=== PATIENT | female | born 1975 | race Asian ===

== ENCOUNTER 2020-05-28 15:09 | Emergency (ER) | payer OTHER ==
[~2020-05-28] VITALS: Ht 157.5 cm; Wt 49.9 kg
[2020-05-28 15:30] VITALS: BP 155/95
--- NOTE | 2020-05-28 15:42 | NUR ---
PT AMB TO BED 4.
--- NOTE | 2020-05-28 15:56 | NUR ---
Dr. Lee is evaluating the patient at bedside.
--- NOTE | 2020-05-28 16:00 | NUR ---
C/O DIZZINESS AND NAUSEA STARTING THIS MORNING FOLLOWED BY A WITNESSED SYNCOPAL EPISODE. PER PT, SHE HAS NOT HAS RECENT COUGH/FEVER/SOB ETC. PT REPORTS TAKING HER BP MEDICATION IN THE MORNING PRIOR TO THE SYNCOPAL EPISODE. PT A & O X4, STATES SHE STILL FEELS VERY WEAK. DENIES NAUSEA AT THIS TIME.BED IN LOW POSITION, SIDE RAILS UP X1. PT PLACED ON BEDSIDE MANAGER OF [facility] AT THIS TIME.
[2020-05-28 16:28] LABS: BASOPHILS % (AUTO) 0.5 % (0.0-2.0); EOSINOPHILS % (AUTO) 0.2 % (0.0-4.0); HEMATOCRIT 33.4 % (36-48); HEMOGLOBIN 10.7 g/dL (12.0-16.0); LYMPHOCYTES # (AUTO) 1.3 K/uL (2.5-16.5); LYMPHOCYTES % (AUTO) 16.1 % (20.5-51.1); MEAN CORPUSCULAR HEMOGLOBIN 26 pg (27-31); MEAN CORPUSCULAR HGB CONC 32 g/dL (33-37); MEAN CORPUSCULAR VOLUME 80.5 fL (80-94); MONOCYTES # (AUTO) 0.3 K/uL (0.8-1.0); MONOCYTES % (AUTO) 4.3 % (1.7-9.3); NEUTROPHILS # (AUTO) 6.2 K/uL (1.8-7.7); NEUTROPHILS % (AUTO) 78.9 % (42.2-75.2); PLATELET COUNT (AUTO) 330 K/uL (140-450); RED BLOOD CELL COUNT(AUTO) 4.14 MIL/uL (4.20-5.40); RED CELL DISTRIBUTION WIDTH 16.2 % (11.6-13.7); WHITE BLOOD COUNT (AUTO) 7.9 K/uL (4.8-10.8)
[2020-05-28 16:49] LABS: ANION GAP 14.8 (8-16); CREATININE 0.8 mg/dL (0.6-1.3); THYROID STIMULATING HORMONE 0.91 uIU/mL (0.34-3.74); TOTAL BILIRUBIN 0.4 mg/dL (0.0-1.0)
[2020-05-28 16:55] LABS: POTASSIUM 2.8 mmol/L (3.5-5.1)
[2020-05-28] MEDS ORDERED: KCL 20 MEQ/WATER INJ PREMIX 100 ML IV ONE (17:05)
[2020-05-28] MEDS ORDERED: POTASSIUM CHLORIDE 10 MEQ TABER PO ONE (17:05)
[2020-05-28] MEDS ORDERED: MAG SULF 2000 MG/WATER PREMIX 50 ML IV ONE (17:05)
[2020-05-28] MEDS ORDERED: NACL 0.9% 1,000 ML IV ONE (17:05)
--- NOTE | 2020-05-28 19:36 | NUR ---
RECEIVED REPORT FROM AMADEO ISABEL
[2020-05-28 21:22] VITALS: BP 159/87
--- NOTE | 2020-05-28 21:25 | NUR ---
Patient discharged with v/s stable. Written and verbal after care instructions given and explained. Patient verbalized understanding. Ambulatory with steady gait. All questions addressed prior to discharge. Advised to follow up with PMD.
== END 2020-05-28 21:22 | disposition home or self-care (01) ==
LOC: MED 15:09
DX: E87.6 Hypokalemia (principal); R55 Syncope and collapse; I10 Essential (primary) hypertension
CPT/HCPCS: 36415; 71045; 80053; 81002; 81025; 82948; 84443; 84484; 85025; 93005; 96365; 96366; 96368; 99285; J3475; J3480; J7030; Q0092

== ENCOUNTER 2020-06-12 21:40 | Emergency (ER) | payer OTHER ==
[~2020-06-12] VITALS: Ht 149.9 cm; Wt 50.3 kg
[2020-06-12 21:57] VITALS: BP 175/89
--- NOTE | 2020-06-12 22:05 | NUR ---
PT TAKEN TO BED 5
--- NOTE | 2020-06-12 22:14 | NUR ---
45 Y/O FEMALE BIB FROM HOME. PT IS [place] SPEAKING ONLY. HISTORY IS PROVIDED BY . STATES PT HAS BEEN HAVING INCREASED BP FOR THE PAST TWO WEEKS. STATES PT'S PRIMARY DOCTOR CHANGED LOSARTAN DOSAGE AROUND 2 WEEKS AGO. STATES HE GAVE PT AN ADDITIONAL LOSARTAN 50MG X 2HRS AGO. PT HAS C/O NAUSEA, AND FEELING TIRED. DENIES HEADACHE, VOMITING, DIARRHEA, VISION CHANGES, COUGH. CAP REFILL <3 SEC, R/R EQUAL, AND UNLABORED. VSS EXCEPT CURRENT BP 154/85. SIDE RAIL X1, BED IN LOW POSITION, WILL CONTINUE TO MONITOR. PMH: HTN NKDA
--- NOTE | 2020-06-12 22:33 | NUR ---
Dr. Mullins examining patient.
--- NOTE | 2020-06-12 22:52 | NUR ---
EKG PERFORMED AT BEDSIDE. SINUS RHYTHM @ 74
[2020-06-12 23:01] LABS: BASOPHILS # (AUTO) 0.1 K/uL (0.00-0.22); BASOPHILS % (AUTO) 0.9 % (0.0-2.0); EOSINOPHILS # (AUTO) 0.1 K/uL (0-0.4); EOSINOPHILS % (AUTO) 0.8 % (0.0-4.0); HEMATOCRIT 32.2 % (36-48); HEMOGLOBIN 10.5 g/dL (12.0-16.0); LYMPHOCYTES # (AUTO) 1.8 K/uL (2.5-16.5); LYMPHOCYTES % (AUTO) 19.1 % (20.5-51.1); MEAN CORPUSCULAR HEMOGLOBIN 27 pg (27-31); MEAN CORPUSCULAR HGB CONC 32 g/dL (33-37); MEAN CORPUSCULAR VOLUME 81.7 fL (80-94); MONOCYTES # (AUTO) 0.6 K/uL (0.8-1.0); MONOCYTES % (AUTO) 6.9 % (1.7-9.3); NEUTROPHILS # (AUTO) 6.7 K/uL (1.8-7.7); NEUTROPHILS % (AUTO) 72.3 % (42.2-75.2); PLATELET COUNT (AUTO) 352 K/uL (140-450); RED BLOOD CELL COUNT(AUTO) 3.95 MIL/uL (4.20-5.40); RED CELL DISTRIBUTION WIDTH 18.1 % (11.6-13.7); WHITE BLOOD COUNT (AUTO) 9.2 K/uL (4.8-10.8)
[2020-06-12 23:10] LABS: ANION GAP 13.9 (8-16); CARBON DIOXIDE 24.5 mmol/L (21-32); CREATININE 0.7 mg/dL (0.6-1.3); POTASSIUM 3.4 mmol/L (3.5-5.1)
[2020-06-12 23:37] VITALS: BP 135/81
== END 2020-06-12 23:34 | disposition home or self-care (01) ==
LOC: MED 21:40
DX: I10 Essential (primary) hypertension (principal)
CPT/HCPCS: 36415; 80048; 85025; 93005; 99284

== ENCOUNTER 2023-03-12 13:39 | Emergency (ER) | payer OTHER ==
[~2023-03-12] VITALS: Ht 157.5 cm; Wt 52.2 kg
--- NOTE | 2023-03-12 14:10 | NUR ---
AMBULATED TO ER BED 8
--- NOTE | 2023-03-12 14:11 | NUR ---
PT. AMB. TO BED 8 W NO DIFF. NO DISTRESS. NO NEURO DEFICITS. AWAKE AND ALERT. CZECH [employer] FEEDER USED VIA THE [employer] SERVICE.
--- NOTE | 2023-03-12 14:11 | NUR ---
The patient's care was reviewed and supervised by NAKUL FUNG RN.
[2023-03-12 14:13] VITALS: BP 163/93
[2023-03-12 14:27] LABS: APPEARANCE,URINE CLEAR (CLEAR); BILIRUBIN,URINE NEGATIVE (NEGATIVE); BLOOD, URINE 2+ (NEGATIVE); COLOR,URINE YELLOW (YELLOW); LEUKOCYTE ESTERASE ,URINE NEGATIVE (NEGATIVE); NITRITE, URINE NEGATIVE (NEGATIVE); PH,URINE 5.5 (5.0-9.0); UGLUCOSE NEGATIVE (NEGATIVE)
--- NOTE | 2023-03-12 14:37 | NUR ---
Dr. Rodrigues evaluating patient at bedside.
[2023-03-12] MEDS ORDERED: MECLIZINE 25 MG TAB PO ONE (14:45)
[2023-03-12 14:51] LABS: BASOPHILS % (AUTO) 0.4 % (0.0-2.0); EOSINOPHILS % (AUTO) 0.4 % (0.0-4.0); HEMATOCRIT 30.3 % (36-48); HEMOGLOBIN 10.7 g/dL (12.0-16.0); LYMPHOCYTES # (AUTO) 1.4 K/uL (2.5-16.5); LYMPHOCYTES % (AUTO) 13.1 % (20.5-51.1); MEAN CORPUSCULAR HEMOGLOBIN 33 pg (27-31); MEAN CORPUSCULAR HGB CONC 35 g/dL (33-37); MEAN CORPUSCULAR VOLUME 94.3 fL (80-94); MONOCYTES # (AUTO) 0.4 K/uL (0.8-1.0); MONOCYTES % (AUTO) 4.3 % (1.7-9.3); NEUTROPHILS # (AUTO) 8.5 K/uL (1.8-7.7); NEUTROPHILS % (AUTO) 81.8 % (42.2-75.2); PLATELET COUNT (AUTO) 276 K/uL (140-450); RED BLOOD CELL COUNT(AUTO) 3.21 MIL/uL (4.20-5.40); RED CELL DISTRIBUTION WIDTH 12.9 % (11.6-13.7); WHITE BLOOD COUNT (AUTO) 10.4 K/uL (4.8-10.8)
[2023-03-12 14:59] LABS: ANION GAP 10.1 (8-16); CARBON DIOXIDE 27.4 mmol/L (21-32); CREATININE 0.9 mg/dL (0.6-1.3); POTASSIUM 3.5 mmol/L (3.5-5.1)
--- NOTE | 2023-03-12 15:04 | NUR ---
Dr. Rodrigues re-evaluating patient at bedside.
[2023-03-12] MEDS ORDERED: MECL-303 PO (15:05)
[2023-03-12 15:25] VITALS: BP 130/73
--- NOTE | 2023-03-12 15:25 | NUR ---
Patient discharged with v/s stable. Written and verbal after care instructions given. Patient alert, oriented and verbalized understanding of instructions. Ambulatory with steady gait. All questions addressed prior to discharge. ID band removed. Patient advised to follow up with PMD. Rx of Antivert given. Opportunity to ask questions provided and answered.
--- NOTE | 2023-03-12 16:12 | NUR ---
The patient's care was reviewed and supervised by ED Agency Nurse 8, RN, RN.
== END 2023-03-12 15:24 | disposition home or self-care (01) ==
LOC: MED 13:39
DX: R42 Dizziness and giddiness (principal); R00.2 Palpitations; I10 Essential (primary) hypertension; Z79.899 Other long term (current) drug therapy; Z98.890 Other specified postprocedural states
CPT/HCPCS: 36415; 80048; 81001; 85025; 93005; 99284; J8597

== ENCOUNTER 2024-08-11 04:35 | Emergency (ER) | payer OTHER ==
[~2024-08-11] VITALS: Ht 154.9 cm; Wt 54.4 kg
[~2024-08-11 04:35] MED LIST: MECL-303 PO
[2024-08-11 04:46] VITALS: BP 168/80; PULSE 105; RESP 18; TEMP 98.6; O2SAT 98
[2024-08-11 05:40] LABS: INR 0.97 (0.8-1.2); PARTIAL THROMBOPLASTIN TIME 21.6 secs (22-35.6); PROTHROMBIN TIME 10.2 secs (10.8-13.4)
[2024-08-11 05:42] LABS: ALBUMIN 3.9 g/dL (3.4-5.0); ANION GAP 12.8 (8-16); BASOPHILS # (AUTO) 0.1 K/uL (0.00-0.22); BASOPHILS % (AUTO) 0.7 % (0.0-2.0); CALCIUM 9.1 mg/dL (8.5-10.1); CARBON DIOXIDE 25.8 mmol/L (21-32); CREATININE 0.8 mg/dL (0.6-1.3); EOSINOPHILS # (AUTO) 0.1 K/uL (0-0.4); EOSINOPHILS % (AUTO) 0.6 % (0.0-4.0); HEMATOCRIT 36.7 % (36-48); HEMOGLOBIN 12.6 g/dL (12.0-16.0); LYMPHOCYTES # (AUTO) 1.7 K/uL (2.5-16.5); LYMPHOCYTES % (AUTO) 15.3 % (20.5-51.1); MEAN CORPUSCULAR HEMOGLOBIN 33 pg (27-31); MEAN CORPUSCULAR HGB CONC 34 g/dL (33-37); MEAN CORPUSCULAR VOLUME 96.4 fL (80-94); MONOCYTES # (AUTO) 0.4 K/uL (0.8-1.0); MONOCYTES % (AUTO) 3.6 % (1.7-9.3); NEUTROPHILS # (AUTO) 8.9 K/uL (1.8-7.7); NEUTROPHILS % (AUTO) 79.8 % (42.2-75.2); PLATELET COUNT (AUTO) 327 K/uL (140-450); POTASSIUM 3.6 mmol/L (3.5-5.1); RED BLOOD CELL COUNT(AUTO) 3.81 MIL/uL (4.20-5.40); TOTAL BILIRUBIN 0.8 mg/dL (0.0-1.0); TOTAL PROTEIN, SERUM 7.1 g/dL (6.4-8.2); WHITE BLOOD COUNT (AUTO) 11.1 K/uL (4.8-10.8)
[2024-08-11] MEDS ORDERED: MEDR10TA PO (06:44)
[2024-08-11] MEDS: KETOROLAC 30 MG/ML VIAL IM ONE (06:55)
[2024-08-11] MEDS: medroxyPROGESTERone 10 MG TAB PO ONE (07:07)
[2024-08-11] MEDS: KETOROLAC 30 MG/ML VIAL IVP ONE (07:09)
[2024-08-11 07:48] VITALS: BP 128/80; PULSE 69; RESP 16; TEMP 98.6; O2SAT 98
== END 2024-08-11 07:48 | disposition home or self-care (01) ==
LOC: MED 04:35
DX: N93.9 Abnormal uterine and vaginal bleeding, unspecified (principal); I10 Essential (primary) hypertension; Z79.899 Other long term (current) drug therapy
CPT/HCPCS: 36415; 80053; 81025; 85025; 85610; 85730; 96374; 99284; J1885

== ENCOUNTER 2024-08-13 04:25 | Emergency (ER) | payer OTHER ==
[~2024-08-13] VITALS: Ht 154.9 cm; Wt 59.0 kg
[~2024-08-13 04:25] MED LIST changes: +MEDR10TA PO
[2024-08-13 04:28] VITALS: BP 138/66; PULSE 96; RESP 20; TEMP 98.9; O2SAT 97
[2024-08-13 04:46] VITALS: TEMP 98.9
[2024-08-13 05:24] LABS: BASOPHILS # (AUTO) 0.1 K/uL (0.00-0.22); BASOPHILS % (AUTO) 0.8 % (0.0-2.0); EOSINOPHILS # (AUTO) 0.2 K/uL (0-0.4); EOSINOPHILS % (AUTO) 1.6 % (0.0-4.0); HEMATOCRIT 34.5 % (36-48); HEMOGLOBIN 11.9 g/dL (12.0-16.0); LYMPHOCYTES # (AUTO) 2.2 K/uL (2.5-16.5); MEAN CORPUSCULAR HEMOGLOBIN 34 pg (27-31); MEAN CORPUSCULAR HGB CONC 35 g/dL (33-37); MEAN CORPUSCULAR VOLUME 97.5 fL (80-94); MONOCYTES # (AUTO) 0.5 K/uL (0.8-1.0); MONOCYTES % (AUTO) 4.6 % (1.7-9.3); NEUTROPHILS # (AUTO) 8.5 K/uL (1.8-7.7); PLATELET COUNT (AUTO) 305 K/uL (140-450); RED BLOOD CELL COUNT(AUTO) 3.54 MIL/uL (4.20-5.40); RED CELL DISTRIBUTION WIDTH 13.2 % (11.6-13.7); WHITE BLOOD COUNT (AUTO) 11.5 K/uL (4.8-10.8)
[2024-08-13 05:38] LABS: ANION GAP 12.1 (8-16); CALCIUM 8.5 mg/dL (8.5-10.1); CARBON DIOXIDE 25.4 mmol/L (21-32); CREATININE 0.7 mg/dL (0.6-1.3); POTASSIUM 3.5 mmol/L (3.5-5.1)
[2024-08-13 06:08] VITALS: BP 133/78; PULSE 78; RESP 16; O2SAT 98
== END 2024-08-13 06:11 | disposition home or self-care (01) ==
LOC: MED 04:25
DX: R07.9 Chest pain, unspecified (principal); I10 Essential (primary) hypertension; Z79.899 Other long term (current) drug therapy
CPT/HCPCS: 36415; 71045; 80048; 83880; 84484; 85025; 85379; 93005; 99285; Q0092